=== PATIENT | male | born 1960 | race Caucasian/White ===

== ENCOUNTER → 2023-08-02 16:08 | Outpatient (REF) | payer BC, SELFPAY | LOC: RAD 16:08 | PROVIDERS: ATTENDING PHYSICIAN Physician Assistant Medical | DX: M25.512 Pain in left shoulder (principal) | CPT/HCPCS: 73030 ==

== ENCOUNTER → 2023-08-12 15:27 | Outpatient (REF) | payer BC, SELFPAY ==
[2023-08-12 18:06] LABS: ALT (SGPT) 129 U/L (0-50); AST (SGOT) 64 U/L (17-59); Albumin 4.4 g/dl (3.5-5.0); Alkaline Phosphatase 50 U/L (38-126); Blood Urea Nitrogen 33 mg/dl (9-20); Calcium 10.2 mg/dl (8.4-10.2); Carbon Dioxide 30 mmol/L (22-30); Chloride 103 mmol/L (98-107); Glucose 105 mg/dl (70-99); Potassium 4.4 mmol/L (3.5-5.1); Sodium 139 mmol/L (135-145); Total Bilirubin 0.5 mg/dl (0.2-1.3); eGFR > 60.00
== END ==
LOC: REG 15:27
PROVIDERS: ATTENDING PHYSICIAN Physician Assistant Medical
DX: N28.9 Disorder of kidney and ureter, unspecified (principal)
CPT/HCPCS: 36415; 80053

== ENCOUNTER → 2023-08-18 07:46 | Outpatient (REF) | payer BC, SELFPAY | LOC: RAD 07:46 | PROVIDERS: ATTENDING PHYSICIAN Physician Assistant Medical | DX: M89.9 Disorder of bone, unspecified (principal) | CPT/HCPCS: 71260; Q9967 ==

== ENCOUNTER 2024-11-25 12:03 | Emergency (ER) | payer BC, SELFPAY ==
[2024-11-25 12:03] VITALS: BMI 28.7
--- NOTE | 2024-11-25 13:28 | ED.GENMED ---
History of Present Illness
General
Chief Complaint: Skin Surface Trauma
Source: patient
Exam Limitations: none
Time Seen by Provider: 11/25/24 12:29
Nursing documentation reviewed up to this point in time: agreed with
History of Present Illness
History of Present Illness:
64-year-old male presents to the ER complaining of laceration to left hand. He was using a brand-new box toe cementer/razor and lacerated the inner aspect of his left hand. Patient is right-hand dominant. He is unsure of his last tetanus. He denies
any other injuries. He denies any numbness tingling.
Review of Systems
Review of Systems
Allergies reviewed?: Yes
All Other Systems: ROS reviewed and negative except as documented in HPI and ROS
Phy Exam
General Physical Exam
General Presentation: no apparent distress
General age: appears stated age
General Skin: warm and dry
General Habitus: normal
General Mental: alert
General Hydration: appears well hydrated
Neurological Exam
Neurological Exam: alert and oriented x3
Musculoskeletal Exam
Musculoskeletal Exam: full ROM and other (Left hand approximately 4 cm full-thickness subcutaneous laceration to the webspace between 1st and 2nd finger actively bleeding no tendon visible able to flex extend all fingers no deficit normal cap refill
normal sensation, no bony tenderness )
Skin Exam
Skin Exam: normal color and warm/dry
Psychiatric Exam
Psychiatric Exam: normal mood/affect
Course
Orders/Labs/Results
Orders:
Orders
11/25/24 13:26
Cephalexin Monohydrate [Keflex] 500 mg PO NOW STA
Tetanus/Diphth/Acelpertussis [Adacel] 0.5 ml IM .ONCE ONE
11/25/24 13:32
Vital Signs- Treatment ONCE
Frequency: Once
Vital Signs
Initial and Last Documented VS:
Initial Vital Signs
Temp Pulse Resp Pulse Ox
98.7 F 80 18 99
11/25/24 12:06 11/25/24 12:06 11/25/24 12:06 11/25/24 12:06
Last Documented Vital Signs
Temp Pulse Resp BP Pulse Ox
98.2 F 74 16 118/74 99
11/25/24 13:49 11/25/24 13:49 11/25/24 13:49 11/25/24 13:49 11/25/24 13:49
Procedures
Laceration Closure
Left Hand:
Status of Wound: clean
Size of Wound in cm: 4.5
Description of Wound Edges: sharp
Preparation: cleaned with saline
Anesthesia: 1% Lidocaine with epi
Revision/Debridement: routine- no revision
Wound exploration: explored to base- no FB and no tendon involvement
Type of Closure: single layer closure and interrupted sutures
Skin Closure Material: 4-0 nylon
Number of sutures: 5
MDM/Problems Addressed
Differential Diagnosis Includes:
Not limited to laceration, tendon injury
MDM/Problems Addressed:
Patient with full-thickness actively bleeding laceration to left hand no tendon deficit no bony tenderness normal sensation neurovascular exam is normal. Wound irrigated with copious angella normal saline and sutured as documented. Tetanus updated.
Will DC on Keflex and extremities RUE infection. Return precautions given.
*Pulse Oximetry
SaO2: 99
Oxygen Mode of Delivery: Room air
Patient hypoxic: no
*Critical Care Note
Total Time (30-74mins, 75-104mins- exclusive of procedures): Not Applicable
ED Attending Note
-
Portions of this chart may have been created with voice recognition software.� Occasional wrong word or��sound alike� substitutions may have occurred due to the inherent limitations of voice recognition software.
Discharge Plan
Departure
Patient Disposition: Home (Routine Discharge)
Date of Disposition: 11/25/24
Time of Disposition: 13:32
Patient with high blood pressure during this ER visit?: No
Condition: Fair
Covid-19: Not Applicable
Discharge Problem:
Hand laceration
Instructions: Laceration Repair With Stitches (DC), Laceration
Prescriptions:
New
cephalexin 500 mg capsule
500 mg PO Q6H Qty: 20 0RF
Activity Restrictions/Additional Instructions:
Keep wound clean and dry for 24 hours after 24 hours wash twice a day with soap and water pat dry apply small layer of antibiotic to the area. See family doctor in 2 days for wound check and sutures are to removed in 10 to 12 days. Return if any
signs infection of increased pain swelling redness transfer or chills.
Interventions
Interventions:
*Risk Screen - Suicide Last Done: 11/25/24 12:06
*General Assessment Last Done: 11/25/24 12:06
*Neglect/Abuse Screening Last Done: 11/25/24 12:06
*ED- Fall Risk Assessment Last Done: 11/25/24 13:16
*Nursing Disposition Last Done: 11/25/24 13:50
ED-Skin Assessment Last Done: 11/25/24 13:16
Discharge Date and Time
Discharge Date/Time: 11/25/24 14:18
Print Language: SERBIAN
[2024-11-25] MEDS: KEFLEX 500 MG PO (13:40)
[2024-11-25] MEDS: ADACEL 0.5 ML IM (13:41)
[2024-11-25 13:49] VITALS: BP 118/74
== END 2024-11-25 14:18 | disposition home or self-care (01) ==
LOC: EMR 12:03
PROVIDERS: EMERGENCY PHYSICIAN Emergency Medicine; FAMILY PHYSICIAN Physician Assistant Medical
DX: S61.412A Laceration without foreign body of left hand, initial encounter (principal); W26.0XXA Contact with knife, initial encounter; Z23 Encounter for immunization; Z88.0 Allergy status to penicillin; Z88.8 Allergy status to other drugs, medicaments and biological substances; Z91.048 Other nonmedicinal substance allergy status
CPT/HCPCS: 12042; 99283; 90471; 90715

== ENCOUNTER → 2025-01-19 16:03 | Outpatient (REF) | payer BC, SELFPAY ==
[2025-01-19 16:29] LABS: Hematocrit 44.1 % (39.0-52.0); Hemoglobin 14.7 g/dL (13.0-18.0); Mean Corp Hgb Conc. 33.3 g/dL (33.0-37.0); Mean Corpuscular Volume 97.6 fL (80.0-94.0); Nucleated Red Blood Cells % 0 % (-); Platelet Count 163 10^3/uL (130-400); Red Cell Dist. Width 11.9 % (11.5-14.5)
[2025-01-19 17:22] LABS: ALT (SGPT) 135 U/L (0-50); AST (SGOT) 75 U/L (17-59); Albumin 4.4 g/dl (3.5-5.0); Alkaline Phosphatase 56 U/L (38-126); Blood Urea Nitrogen 19 mg/dl (9-20); Calcium 9.9 mg/dl (8.4-10.2); Carbon Dioxide 27 mmol/L (22-30); Chloride 107 mmol/L (98-107); Glucose 93 mg/dl (70-99); HDL Cholesterol 75 mg/dl; LDL Cholesterol, Calculated 136 mg/dl; Potassium 4.4 mmol/L (3.5-5.1); Sodium 140 mmol/L (135-145); Total Protein 7.2 g/dl (6.3-8.2); Very Low Density Lipoprotein 18 mg/dl (0-30); eGFR > 60.00
[2025-01-19 17:50] LABS: PSA, Total - Screen 0.42 ng/ml (0.0-4.0); TSH 1.05 uIU/ml (0.47-4.68)
== END ==
LOC: CLAB 16:03
PROVIDERS: ATTENDING PHYSICIAN Physician Assistant Medical
DX: Z00.00 Encounter for general adult medical examination without abnormal findings (principal); Z12.5 Encounter for screening for malignant neoplasm of prostate
CPT/HCPCS: 80053; 80061; 84443; 85025; G0103